=== PATIENT | female | born 1955 | race Caucasian/White ===

== ENCOUNTER 2023-12-16 03:10 | Emergency (ER) | payer MEDICARE, OTHER, SELFPAY ==
[2023-12-16] VITALS (11 sets, daily range): BP systolic 141–174; BP diastolic 64–78; PULSE 86–106; RESP 16–22; TEMP 36.8; O2SAT 93–97; BMI 18.3
--- NOTE | 2023-12-16 03:14 | DI.CT.S_ITS ---
PROCEDURE: CT ANGIO HEAD AND NECK INDICATIONS: Aphasia TECHNIQUE: After the administration of intravenous contrast, 1 mm thick sections acquired from the aortic arch through the [place] of [place]. 3-dimensional mhvajhv-whwbeyesx-rcprptccve (MIP) and/or volume rendering reformats were acquired of the central intracranial vasculature and neck separately. For radiation dose reduction, the following was used: automated exposure control, adjustment of mA and/or kV according to patient size. COMPARISON: None. FINDINGS: Image quality: Diagnostic. BRAIN: CSF spaces: Ventricles are normal in size and shape. Basal cisterns are patent. No extra-axial fluid collections. Brain: No significant abnormality of the brain can be seen. No area of abnormal intracranial enhancement is seen. Skull and face: Calvarium and facial bones appear intact, without suspicious lesions. Orbits appear normal. Sinuses: Polyp is seen in left maxillary sinus. Rest of the paranasal sinuses and mastoids are clear. HEAD CT ANGIOGRAPHY: Anterior circulation: Intracranial internal carotid arteries are normal in size and flow. The flow within the paired anterior cerebral arteries is normal and symmetric. The flow within the middle cerebral arteries is normal and symmetric. The anterior communicating artery is seen. No aneurysms are seen. Posterior circulation: Visualized portions of the vertebral arteries demonstrate normal caliber, and join to form a normal appearing basilar artery. Flow within the posterior cerebral arteries is normal and symmetric. No aneurysms are seen. NECK CT ANGIOGRAPHY: Carotid system: The great vessels demonstrate a conventional anatomy as they arise from the aortic arch. The origins of the common carotid arteries appear patent. Moderate amount of atherosclerotic calcifications are noted involving bilateral distal common carotid arteries and carotid bifurcations with 60-70% stenosis involving origin of right internal carotid artery and less than 50% stenosis involving origin of left internal carotid artery. More distal portion of the internal carotid arteries demonstrate normal calibers and courses. Posterior circulation: The origins of the vertebral arteries both appear widely patent. The more superior extracranial portions of both vertebral arteries also demonstrate normal courses and calibers. They join to form a normal appearing basilar artery. Soft tissues: Visualized neck soft tissues demonstrate no suspicious abnormalities. Bones: No suspicious bony lesions. Visualized cervical spine appears normally aligned. IMPRESSION: 1. No area of abnormal intracranial enhancement. No acute intracranial bleed or midline shift. 2. No hemodynamically significant stenosis or aneurysm is seen in the intracranial circulation. 3. Moderate atherosclerotic disease involving bilateral carotid bifurcations with up to 70% stenosis involving origin of right internal carotid artery and less than 50% stenosis involving origin of left internal carotid arteries. No significant discrepancies from preliminary reading. Any quantitative measurements of stenosis were performed using NASCET criteria. Dictated by: Aleksandr Roldan M.D. on 12/16/2023 at 8:20 Approved by: Aleksandr Roldan M.D. on 12/16/2023 at 8:23
--- NOTE | 2023-12-16 03:14 | DI.CT.S_ITS ---
PROCEDURE: CT HEAD/BRAIN WO CON INDICATIONS: Aphasia TECHNIQUE: Noncontrast 4.5 mm thick angled axial sections acquired from the foramen magnum to the vertex, with coronal and sagittal reformats. For radiation dose reduction, the following was used: automated exposure control, adjustment of mA and/or kV according to patient size. COMPARISON: None. FINDINGS: Image quality: Diagnostic. CSF spaces: Basal cisterns are patent. No extra-axial fluid collections. The ventricles are symmetric in size and shape. Brain: Hypodensity involving right frontal parietal region with poor lindsey-white differentiation concerning for infarction of indeterminate age. No intracranial bleeds or masses. There is cerebral volume loss for age, with resultant ventricular and sulcal prominence. There are periventricular and deep white matter chronic small vessel ischemic changes. There is intracranial internal carotid artery atherosclerosis. Skull and face: Calvarium and visualized facial bones appear intact, without suspicious lesions. Sinuses: Visualized sinuses and mastoids are clear. IMPRESSION: Finding is concerning for age indeterminate infarction involving right frontal parietal region. MRI of brain can be done for further evaluation if indicated. No evidence of acute intracranial bleed, midline shift or significant mass effect. Age related volume loss and moderate white matter chronic small vessel ischemic changes. No discrepancies from preliminary reading. Dictated by: Aleksandr Roldan M.D. on 12/16/2023 at 8:17 Approved by: Aleksandr Roldan M.D. on 12/16/2023 at 8:19
[2023-12-16 03:32] LABS: Add Manual Diff / Slide Review NO; Basophils Absolute Auto 100 /uL (0-100); Basophils Percent Auto 1.2 % (0-2); Eosinophils Absolute Auto 300 /uL (0-450); Eosinophils Percent Auto 5.8 % (2-4); Hematocrit 35.8 % (36-46); Hemoglobin 12.4 g/dL (12.0-16.0); Lymphocytes Absolute Auto 1200 /uL (1100-4500); Lymphocytes Percent Auto 20.6 % (25-40); Mean Corpuscular HGB Conc 34.7 % (30-36); Mean Corpuscular Volume 92.2 fL (80-100); Monocytes Absolute Auto 1400 /uL (0-900); Monocytes Percent Auto 24.2 % (3-14); Neutrophils Absolute Auto 2700 /uL (1500-7000); Neutrophils Percent Auto 48.2 % (50-75); Platelet Count 257 X10^3/uL (150-400); Red Blood Cell Count 3.89 X10^6/uL (4.0-5.2); Red Cell Distribution Width 13.3 % (11.6-14.8); White Blood Cell Count 5.6 X10^3/uL (4.5-11.0)
--- NOTE | 2023-12-16 04:09 | ED_ITS ---
HPI - Neuro Symptoms/Deficit General Chief Complaint: Neuro Symptoms/Deficit Stated Complaint: Slurred Speech Time Seen by Provider: 12/16/23 03:13 Source: patient and EMS Mode of arrival: EMS History of Present Illness HPI Narrative: Patient is a 68-year-old female. Not on anticoagulation. Last known normal 2100 hours when she went to bed last evening. Brought in by EMS for evaluation of slurred speech. She was here with her . Patient has had a recent diagnosis of C diff. She was currently on medications for this. Patient's states that he has been sleeping in another room because the patient gets up multiple times during the evening to go to the bathroom. This evening he heard her get up and seemed to be making more noise than normal so he went to check on her. She was unable to speak. This is what prompted him to contact 911. Here in the ER the patient is having a difficult time expressing what she was trying to say. She does indicate that she knows what she wants to say but is unable to do so. She denies headache, vision changes, chest pain, shortness of breath, palpitations, she was having some abdominal discomfort this is baseline for her because of the C diff. she denies any upper or lower extremity weakness. On Anticoagulants: No Related Data Home Medications Medication Instructions Recorded Confirmed [allertec] ##0 06/17/17 lisinopril 10 mg tablet 10 mg PO QDAY ##0 06/17/17 aspirin 81 mg tablet,delayed 81 mg PO QDAY ##0 07/23/17 release cholecalciferol (vitamin D3) 50 2,000 iu PO QDAY ##0 07/23/17 mcg (2,000 unit) capsule (Vitamin D3) omega 8-wzs-afm-fish oil 1,000 mg 1,200 mg PO ##0 07/23/17 (120 mg-180 mg) capsule (Fish Oil) vancomycin 125 mg capsule 125 mg PO 4XD 12/16/23 12/16/23 Previous Rx's Medication Instructions Recorded acyclovir 800 mg tablet 800 mg PO 5XD #50 tabs 07/23/17 Allergies Allergy/AdvReac Type Severity Reaction Status Date / Time cefuroxime [From CEFTIN] Allergy Unknown sick to Unverified 01/28/18 12:46 stomach codeine [CODEINE] Allergy Unknown sick to Unverified 01/28/18 12:46 [facility] Review of Systems Review of Systems ROS Unobtainable: All systems reviewed & are unremarkable except as noted in HPI and below Gastrointestinal Gastrointestinal: Reports system reviewed and no additional complaints, except as documented Neurologic Neurologic: Reports system reviewed and no additional complaints, except as documented Hematologic/Lymphatic On Anticoagulants: No Patient History Social History Smoking Status: Unknown if ever smoked Smoking Status: Unknown if ever smoked Substance Use Type: does not use Exam Initial Vital Signs Initial Vital Signs: Vital Signs Temperature 98.3 F 12/16/23 03:10 Pulse Rate 89 12/16/23 03:10 Respiratory Rate 18 12/16/23 03:10 Blood Pressure 162/72 H 12/16/23 03:10 Pulse Oximetry 95 12/16/23 03:10 Oxygen Delivery Method Room Air 12/16/23 03:10 Const General: cooperative, healthy appearing, comfortable and No ill appearing HENMT Head: normal to inspection and normocephalic Resp Effort & Inspection: normal respiratory effort Auscultation: clear to auscultation bilaterally Cardio Rate: regular rate Rhythm: regular rhythm Skin General: no rashes or lesions noted Neuro General: patient alert, patient awake and moves all extremities Speech: abnormal speech Motor: muscle tone normal throughout Sensory Exam: no sensory deficits noted Extrem General: normal to inspection and capillary refill normal Scores NIH Stroke Scale Level of Conciousness: Alert, keenly responsive Ask month/age: Answers both questions correctly. Open/close eyes, close hand: Performs both tasks correctly Best gaze horizontal: Normal Visual gale: No visual loss Facial palsy: Normal symetrical movement Left arm drift: No drift for full 10 sec Right arm drift: No drift for full 10 sec Left leg drift: No drift for full 5 sec Right leg drift: No drift for full 5 sec Limb ataxia: Absent Sensory on face/arms/legs: Normal, no sensory loss Best language: Severe aphasia, not much is understood, fragmented Dysarthria: Severe, unintelligible Extinction or inattention: No abnormality Total NIH Stroke scale score: 4 Course Orders Ordered: ED Orders 12/16/23 03:00 Complete Blood Count AUTO DIFF Stat Comprehensive Metabolic Panel Stat Ethanol (ETOH) Stat Lipase Stat PTT Partial Thromboplastin Neal Stat Prothrombin Time INR Stat 12/16/23 03:14 CT angio head and neck Stat CT head/brain wo con Stat 12/16/23 03:15 EKG-12 Lead Stat 12/16/23 05:45 COVID19 -Nasal RAPID Stat Discontinued Medications Aspirin (Aspirin Ec 325 Mg Tablet) 325 mg PO NOW ONE Stop: 12/16/23 04:57 Last Admin: 12/16/23 05:20 Dose: 325 mg Documented By: BREEZY Atorvastatin Calcium (Atorvastatin 20 Mg Tablet) 80 mg PO NOW ONE Stop: 12/16/23 04:57 Last Admin: 12/16/23 05:21 Dose: 80 mg Documented By: BREEZY Clopidogrel Bisulfate (Clopidogrel 75 Mg Tablet) 300 mg PO NOW ONE Stop: 12/16/23 04:57 Last Admin: 12/16/23 05:21 Dose: 300 mg Documented By: BREEZY Vancomycin HCl (Vancomycin 125 Mg Capsule) 125 mg PO NOW ONE Stop: 12/16/23 05:54 Last Admin: 12/16/23 06:05 Dose: 125 mg Documented By: BREEZY Vital Signs Vital signs: Vital Signs - 8 hr 12/16/23 03:10 12/16/23 05:58 12/16/23 05:59 Temperature 98.3 F Pulse Rate 89 87 89 Respiratory Rate 18 16 Blood Pressure 162/72 H 141/64 H Pulse Oximetry 95 93 97 Oxygen Delivery Method Room Air Room Air Room Air 12/16/23 05:59 12/16/23 05:59 12/16/23 06:00 Temperature Pulse Rate 88 Respiratory Rate Blood Pressure 141/64 H 148/67 H Pulse Oximetry 97 Oxygen Delivery Method Room Air 12/16/23 06:00 12/16/23 06:34 Temperature Pulse Rate 86 106 H Respiratory Rate Blood Pressure Pulse Oximetry 97 94 Oxygen Delivery Method Room Air Room Air MDM - Neuro Symptoms/Deficit Lab Data Attestation: I reviewed the patient's lab results. 12/16/23 03:00 12/16/23 03:00 Labs: Lab Results 12/16/23 12/16/23 Range/Units 03:00 05:45 WBC 5.6 (4.5-11.0) X10^3/uL RBC 3.89 L (4.0-5.2) X10^6/uL Hgb 12.4 (12.0-16.0) g/dL Hct 35.8 L (36-46) % MCV 92.2 (80-100) fL MCH 32.0 (26-34) PG MCHC 34.7 (30-36) % RDW 13.3 (11.6-14.8) % Plt Count 257 (150-400) X10^3/uL Neut % (Auto) 48.2 L (50-75) % Lymph % (Auto) 20.6 L (25-40) % [place] % (Auto) 24.2 H (3-14) % Eos % (Auto) 5.8 H (2-4) % Baso % (Auto) 1.2 (0-2) % Neut # (Auto) 2700 (8325-3489) /uL Lymph # (Auto) 1200 (5803-8285) /uL [place] # (Auto) 1400 H (0-900) /uL Eos # (Auto) 300 (0-450) /uL Baso # (Auto) 100 (0-100) /uL PT 12.6 H (9.4-12.5) SECONDS INR 1.1 (0.9-1.3) APTT 36 (25.1-36.5) SECONDS Sodium 133 L (137-145) mmol/L Potassium 3.4 (3.4-5.1) mmol/L Chloride 106 (98-107) mmol/L Carbon Dioxide 19 L (22-32) mmol/L BUN 12 (7-17) mg/dL Creatinine 0.64 (0.52-1.04) mg/dL Estimated GFR > 60 (>60) mL/min BUN/Creatinine Ratio 18.8 (6-22) Glucose 83 (80-110) mg/dL Calcium 8.7 (8.4-10.2) mg/dL Total Bilirubin 0.7 (0.2-1.3) mg/dL AST 37 H (14-36) IU/L ALT 45 H (<35) IU/L Alkaline Phosphatase 192 H (38-126) U/L Total Protein 5.7 L (6.3-8.2) g/dL Albumin 2.9 L (3.5-5.0) g/dL Globulin 2.8 (1.7-4.1) g/dL Albumin/Globulin Ratio 1.0 (1.0-2.8) Lipase 66 (23-300) U/L Ethyl Alcohol < 10 ( - 10) mg/dL SARS-CoV-2 (PCR) Negative (Negative) Imaging Data CT scan - head: Radiologist's Impression: Blurring of the lindsey white cortical interface within the right frontoparietal region which could represent an acute or subacute infarct. Refer to CTA of the head performed same day. CTA - brain/neck: Radiologist's Impression: No vessel occlusion Atherosclerotic changes of the carotid bifurcations resulting in 60-70% stenosis on the right and less than 40% stenosis on the left. Patent vesicles intracranial ECG Data Interpretation: Sinus rhythm Ventricular rate 83 Normal axis Normal QRS Nonspecific ST T wave changes MDM Narrative Medical decision making narrative: Patient's symptoms are all related to her ability to speak. Otherwise her neurologic exam is relatively unremarkable. Has a Na score of 4. Outside of the window for tPA given her last known normal at 2100 hours last evening. I did discuss the case with stroke Neurology after the CT scan results showed concern for right-sided frontal CVA. Patient is left handed. While awaiting for results of the CTA received a call back from stroke Neurology stating that the patient does have significant right-sided carotid artery stenosis. They recommended that the patient be given aspirin Plavix and atorvastatin. They also recommended a transfer for further evaluation and discussion about potential endarterectomy. I had a discussion with the patient and regarding this. They stated that several years ago they were seen by a vascular surgeon [facility] about a known carotid artery stenosis. They were told that she was not at a specific level that would necessitate surgery so the decision was made to hold. We discussed her symptoms today and the recommendation for transfer. Patient is agreeable to this. Patient is stable for transport. Discharge Plan Departure Patient Disposition: [facility] Clinical Impression: Cerebrovascular accident Prescriptions: No Action lisinopril 10 MG tablet 10 mg PO QDAY Qty: 0 [allertec] Qty: 0 aspirin 81 MG tablet,delayed release (DR/EC) 81 mg PO QDAY Qty: 0 cholecalciferol (vitamin D3) [Vitamin D3] 2,000 UNIT capsule 2,000 iu PO QDAY Qty: 0 omega 6-vqr-iob-fish oil [Fish Oil] 1,000 MG capsule 1,200 mg PO Qty: 0 acyclovir 800 MG tablet 800 mg PO 5XD Qty: 50 0RF vancomycin 125 mg capsule 125 mg PO 4XD
[2023-12-16 04:30] LABS: INR 1.1 (0.9-1.3); Prothrombin Time 12.6 SECONDS (9.4-12.5)
[2023-12-16 04:32] LABS: PTT Partial Thromboplastin Tim 36 SECONDS (25.1-36.5)
[2023-12-16 04:34] LABS: Alanine Aminotransferase 45 IU/L (<35); Albumin 2.9 g/dL (3.5-5.0); Alkaline Phosphatase 192 U/L (38-126); Aspartate Aminotransferase 37 IU/L (14-36); BUN Creatinine Ratio 18.8 (6-22); Bilirubin Total 0.7 mg/dL (0.2-1.3); Blood Urea Nitrogen 12 mg/dL (7-17); Calcium 8.7 mg/dL (8.4-10.2); Carbon Dioxide 19 mmol/L (22-32); Chloride 106 mmol/L (98-107); Estimated Glomerular Filt Rate > 60 mL/min (>60); Ethanol (ETOH) < 10 mg/dL; Globulin 2.8 g/dL (1.7-4.1); Glucose 83 mg/dL (80-110); HEMOLYSIS < 15 (0-50); Lipase 66 U/L (23-300); Potassium 3.4 mmol/L (3.4-5.1); Sodium 133 mmol/L (137-145); Total Protein 5.7 g/dL (6.3-8.2)
[2023-12-16] MEDS: ASPIRIN EC 325 MG TABLET PO (05:20)
[2023-12-16] MEDS: ATORVASTATIN 20 MG TABLET 80 MG PO (05:21)
[2023-12-16] MEDS: CLOPIDOGREL 75 MG TABLET 300 MG PO (05:21)
[2023-12-16] MEDS: VANCOMYCIN 125 MG CAPSULE PO (06:05)
[2023-12-16 06:16] LABS: COVID19 -Nasal RAPID Negative (Negative)
== END 2023-12-16 09:05 | disposition short-term general hospital (02) ==
PROVIDERS: Emergency Provider Emergency Medicine
DX: I63.9 Cerebral infarction, unspecified (principal); R29.704 NIHSS score 4; Z79.899 Other long term (current) drug therapy
CPT/HCPCS: 36415; 70450; 70496; 70498; 80053; 80320; 83690; 85025; 85610; 85730; 87635; 93005; 99284; Q9967

== ENCOUNTER 2024-01-09 18:46 | Emergency (ER) | payer MEDICARE, OTHER, SELFPAY ==
[2024-01-09 19:17] VITALS: BP 144/66; PULSE 96; RESP 18; TEMP 36.8; O2SAT 97; BMI 17.8
== END 2024-01-09 20:05 | disposition left against medical advice (07) ==
PROVIDERS: Emergency Provider Emergency Medicine
DX: E86.0 Dehydration (principal); R19.7 Diarrhea, unspecified
CPT/HCPCS: 93005; 99282

== ENCOUNTER 2024-01-14 22:52 | Emergency (ER) | payer MEDICARE, OTHER, SELFPAY ==
[2024-01-14 23:02] VITALS: PULSE 71; O2SAT 97
[2024-01-14 23:03] VITALS: BP 213/89; PULSE 72; O2SAT 98
[2024-01-14 23:13] VITALS: BP 213/89; PULSE 78; RESP 18; TEMP 36.7; O2SAT 97; BMI 38.9
--- NOTE | 2024-01-14 23:26 | ED_ITS ---
HPI - Nausea/Vomiting/Diarrhea General Chief complaint: Nausea/Vomiting/Diarrhea Stated complaint: diarrhea, can't keep anything down Time Seen by Provider: 01/14/24 23:16 Source: patient and family Mode of arrival: Ambulatory History of Present Illness HPI Narrative: Patient is a 68-year-old female. Recent CVA. Requiring transfer to [facility]. Spent an extended period of time down in [facility]. At a right-sided carotid endarterectomy. During the time when she was down there she was diagnosed with C diff. She has been on vancomycin. Complete the course of vancomycin within the past week or so. She is here because of diarrhea. She thinks that her symptoms actually were improving for a couple days and she did have an episode of stool earlier today where she thought that it was relatively formed but then developed diarrhea has a day went on. Some generalized abdominal tenderness. No fevers. No vomiting. States her stool does not have the smell in or the consistency of when she was diagnosed with C diff. Related Data Home Medications Medication Instructions Recorded Confirmed [allertec] ##0 06/17/17 lisinopril 10 mg tablet 10 mg PO QDAY ##0 06/17/17 aspirin 81 mg tablet,delayed 81 mg PO QDAY ##0 07/23/17 release cholecalciferol (vitamin D3) 50 2,000 iu PO QDAY ##0 07/23/17 mcg (2,000 unit) capsule (Vitamin D3) omega 9-del-znz-fish oil 1,000 mg 1,200 mg PO ##0 07/23/17 (120 mg-180 mg) capsule (Fish Oil) vancomycin 125 mg capsule 125 mg PO 4XD 12/16/23 12/16/23 Previous Rx's Medication Instructions Recorded acyclovir 800 mg tablet 800 mg PO 5XD #50 tabs 07/23/17 Allergies Allergy/AdvReac Type Severity Reaction Status Date / Time cefuroxime [From CEFTIN] Allergy Unknown sick to Unverified 01/28/18 12:46 stomach codeine [CODEINE] Allergy Unknown sick to Unverified 01/28/18 12:46 [facility] Review of Systems Review of Systems Narrative: See HPI Patient History Social History Smoking Status: Former smoker Smoking Status: Former smoker tobacco type: cigarettes alcohol intake frequency: a few times a week Alcohol type: wine Substance Use Type: does not use Exam Initial Vital Signs Initial Vital Signs: Vital Signs Pulse Rate 71 01/14/24 23:02 Pulse Oximetry 97 01/14/24 23:02 Const General: cooperative, comfortable and No ill appearing Resp Effort & Inspection: normal respiratory effort Auscultation: clear to auscultation bilaterally Cardio Rate: regular rate Rhythm: regular rhythm GI Inspection: normal to inspection and non-distended Palpation: soft, No firm, No guarding and tender Neuro General: patient alert and patient awake Course Orders Ordered: ED Orders 01/14/24 23:20 Complete Blood Count AUTO DIFF Stat Comprehensive Metabolic Panel Stat Lipase Stat 01/15/24 00:43 GI Panel (Film Array) Stat Discontinued Medications Sodium Chloride (Normal Saline 0.9%) 1,000 mls @ 1,000 mls/hr IV BOLUS ONE Stop: 01/15/24 00:15 Last Infusion: 01/15/24 01:02 Dose: Infused Documented By: Admin: 01/14/24 23:40 Dose: 1,000 mls/hr Documented By: BOB Vital Signs Vital signs: Vital Signs - 8 hr 01/14/24 23:02 01/14/24 23:03 01/14/24 23:03 Temperature Pulse Rate 71 72 Respiratory Rate Blood Pressure 213/89 H Pulse Oximetry 97 98 Oxygen Delivery Method 01/14/24 23:13 01/14/24 23:37 01/14/24 23:43 Temperature 98.1 F Pulse Rate 78 69 72 Respiratory Rate 18 Blood Pressure 213/89 H Pulse Oximetry 97 99 98 Oxygen Delivery Method Room Air Room Air 01/14/24 23:43 01/15/24 00:00 01/15/24 00:00 Temperature Pulse Rate 71 Respiratory Rate Blood Pressure 194/85 H 184/79 H Pulse Oximetry 99 Oxygen Delivery Method Room Air Room Air 01/15/24 00:30 01/15/24 00:30 01/15/24 00:52 Temperature Pulse Rate 76 Respiratory Rate Blood Pressure 180/79 H 174/80 H Pulse Oximetry 97 Oxygen Delivery Method 01/15/24 00:52 01/15/24 01:00 01/15/24 01:00 Temperature Pulse Rate 89 82 Respiratory Rate Blood Pressure 197/87 H Pulse Oximetry 96 99 Oxygen Delivery Method Room Air 01/15/24 01:31 01/15/24 01:33 01/15/24 01:33 Temperature Pulse Rate 92 H 81 Respiratory Rate Blood Pressure 197/87 H Pulse Oximetry 85 L 98 Oxygen Delivery Method 01/15/24 02:00 01/15/24 02:00 Temperature Pulse Rate 83 Respiratory Rate Blood Pressure 182/83 H Pulse Oximetry 97 Oxygen Delivery Method Room Air MDM - Nausea/Vomiting/Diarrhea Lab Data 01/14/24 23:20 01/14/24 23:20 Labs: Lab Results 01/14/24 01/15/24 Range/Units 23:20 00:43 WBC 11.2 H (4.5-11.0) X10^3/uL RBC 3.55 L (4.0-5.2) X10^6/uL Hgb 11.2 L (12.0-16.0) g/dL Hct 33.5 L (36-46) % MCV 94.2 (80-100) fL MCH 31.5 (26-34) PG MCHC 33.4 (30-36) % RDW 14.0 (11.6-14.8) % Plt Count 353 (150-400) X10^3/uL Neut % (Auto) 65.2 (50-75) % Lymph % (Auto) 19.3 L (25-40) % [place] % (Auto) 9.5 (3-14) % Eos % (Auto) 5.0 H (2-4) % Baso % (Auto) 1.0 (0-2) % Neut # (Auto) 7300 H (9198-1351) /uL Lymph # (Auto) 2200 (1905-8663) /uL [place] # (Auto) 1100 H (0-900) /uL Eos # (Auto) 600 H (0-450) /uL Baso # (Auto) 100 (0-100) /uL Sodium 137 (137-145) mmol/L Potassium 4.1 (3.4-5.1) mmol/L Chloride 108 H (98-107) mmol/L Carbon Dioxide 26 (22-32) mmol/L BUN 15 (7-17) mg/dL Creatinine 0.60 (0.52-1.04) mg/dL Estimated GFR > 60 (>60) mL/min BUN/Creatinine Ratio 25.0 H (6-22) Glucose 94 (80-110) mg/dL Calcium 9.5 (8.4-10.2) mg/dL Total Bilirubin 0.5 (0.2-1.3) mg/dL AST 34 (14-36) IU/L ALT 20 (<35) IU/L Alkaline Phosphatase 65 (38-126) U/L Total Protein 6.3 (6.3-8.2) g/dL Albumin 3.7 (3.5-5.0) g/dL Globulin 2.6 (1.7-4.1) g/dL Albumin/Globulin Ratio 1.4 (1.0-2.8) Lipase 412 H (23-300) U/L Stl C. cayetanensis PCR Not detected (Not Detect) Stool Rotavirus (PCR) Not detected (Not Detect) Stool Adenovirus (PCR) Not detected (Not Detect) Stool Astrovirus (PCR) Not detected (Not Detect) Stool Cryptosporidium PCR Not detected (Not Detect) Stl E.coli Shiga Tox PCR Not detected (Not Detect) St Sh/Enteroin Ecoli PCR Not detected (Not Detect) Stl Enterotoxigenic E PCR Not detected (Not Detect) Stool EPEC (PCR) Not detected (Not Detect) Stl E. histolytica PCR Not detected (Not Detect) Stool Giardia Lamblia PCR Not detected (Not Detect) Stool Sapovirus (PCR) Not detected (Not Detect) Stl P. shigelloides PCR Not detected (Not Detect) St Y.enterocolitica PCR Not detected (Not Detect) Stool Vibrio (PCR) Not detected (Not Detect) Stl Vibrio cholerae PCR Not detected (Not Detect) Stl Enteroaggr Ecoli PCR Not detected (Not Detect) Stl Norovirus GI/GII PCR Not detected (Not Detect) Campylobacter (PCR) Not detected (Not Detect) C. difficile Tox (PCR) Detected H (Not Detect) Salmonella (PCR) Not detected (Not Detect) MDM Narrative Medical decision making narrative: Patient's vital signs are unremarkable. She stated that she did feel better after fluids. Has a minimal leukocytosis. Her sodium is unremarkable. She is positive for C diff in her stool however I am not convinced that her diarrhea today is related to this. It is possible that she still has C diff in her stool given her most recent diagnosis. I discuss this with her and her . We discussed the possibility that her diarrhea today is just because she has changed her diet after arriving home from the hospital. We also discussed that potentially this is C diff. she completed a course of vancomycin. If she is still having issues with C diff it would be reasonable to switch to a different antibiotic. After this extended discussion with her the plan will be to not treat her for C diff now in his assume that this is a carrier state. She will try Imodium at home. When she was coming home from the hospital with a GI doctor stated that she could take this and she was actually given a prescription for it. She will increase her fluid intake. If things get worse then she will return to the ER. If things are not better I told her that she could call the emergency department to see if the provider who is on would write her a prescription for either fosfomycin her vancomycin but I did tell her that this would not be guaranteed and she potentially would need to come back to the emergency department. She was scheduled to see her primary doctor but not for a month from now. She does not have a GI doctor she sees on a regular basis. She was given return precautions. She expressed understanding and agreement. Discharge Plan Departure Patient Disposition: Home Clinical Impression: Diarrhea Instructions: Diarrhea Activity Restrictions/Additional Instructions: You can do a dose of the loperamide/Imodium to try to help slow down the loose stools. Continue to follow all of the postoperative instructions given to you by the vascular surgeons. Keep all of your scheduled medical appointments. Be sure that you were increasing your fluid intake. Return to the emergency department for new or worsening symptoms. Prescriptions: No Action lisinopril 10 MG tablet 10 mg PO QDAY Qty: 0 [allertec] Qty: 0 aspirin 81 MG tablet,delayed release (DR/EC) 81 mg PO QDAY Qty: 0 cholecalciferol (vitamin D3) [Vitamin D3] 2,000 UNIT capsule 2,000 iu PO QDAY Qty: 0 omega 6-zhj-kuy-fish oil [Fish Oil] 1,000 MG capsule 1,200 mg PO Qty: 0 acyclovir 800 MG tablet 800 mg PO 5XD Qty: 50 0RF vancomycin 125 mg capsule 125 mg PO 4XD Referrals: Elijah Yuan MD [Primary Care Provider] - Stand Alone Forms: Patient Portal/API
[2024-01-14 23:31] LABS: Add Manual Diff / Slide Review NO; Basophils Absolute Auto 100 /uL (0-100); Eosinophils Absolute Auto 600 /uL (0-450); Hematocrit 33.5 % (36-46); Hemoglobin 11.2 g/dL (12.0-16.0); Lymphocytes Absolute Auto 2200 /uL (1100-4500); Lymphocytes Percent Auto 19.3 % (25-40); Mean Corpuscular HGB Conc 33.4 % (30-36); Mean Corpuscular Hemoglobin 31.5 PG (26-34); Mean Corpuscular Volume 94.2 fL (80-100); Monocytes Absolute Auto 1100 /uL (0-900); Monocytes Percent Auto 9.5 % (3-14); Neutrophils Absolute Auto 7300 /uL (1500-7000); Neutrophils Percent Auto 65.2 % (50-75); Platelet Count 353 X10^3/uL (150-400); Red Blood Cell Count 3.55 X10^6/uL (4.0-5.2); White Blood Cell Count 11.2 X10^3/uL (4.5-11.0)
[2024-01-14 23:37] VITALS: PULSE 69; O2SAT 99
[2024-01-14] MEDS: SODIUM CHLORIDE 0.9% 1,000 ML 1000 ML IV (23:40)
[2024-01-14 23:43] VITALS: BP 194/85; PULSE 72; O2SAT 98
[2024-01-14 23:45] LABS: Alanine Aminotransferase 20 IU/L (<35); Albumin 3.7 g/dL (3.5-5.0); Albumin Globulin Ratio 1.4 (1.0-2.8); Alkaline Phosphatase 65 U/L (38-126); Aspartate Aminotransferase 34 IU/L (14-36); Bilirubin Total 0.5 mg/dL (0.2-1.3); Blood Urea Nitrogen 15 mg/dL (7-17); Calcium 9.5 mg/dL (8.4-10.2); Carbon Dioxide 26 mmol/L (22-32); Chloride 108 mmol/L (98-107); Estimated Glomerular Filt Rate > 60 mL/min (>60); Globulin 2.6 g/dL (1.7-4.1); Glucose 94 mg/dL (80-110); HEMOLYSIS 26 (0-50); Lipase 412 U/L (23-300); Potassium 4.1 mmol/L (3.4-5.1); Sodium 137 mmol/L (137-145); Total Protein 6.3 g/dL (6.3-8.2)
[2024-01-15] VITALS (8 sets, daily range): BP systolic 174–197; BP diastolic 79–87; PULSE 71–92; O2SAT 85–99
[2024-01-15 02:07] LABS: Adenovirus F 40/41 Not Detected (Not Detect); Astrovirus Not Detected (Not Detect); Campylobacter Not Detected (Not Detect); Clostridium difficile toxin AB Detected (Not Detect); Cryptosporidium Not Detected (Not Detect); Cyclospora cayetanensis Not Detected (Not Detect); Entamoeba histolytica Not Detected (Not Detect); Enteroaggregative E.coli Not Detected (Not Detect); Enteropathogenic E.coli Not Detected (Not Detect); Enterotoxigenic E.coli It/st Not Detected (Not Detect); Giardia lamblia Not Detected (Not Detect); Norovirus GI/GII Not Detected (Not Detect); Plesiomonsa shigelloides Not Detected (Not Detect); Rotavirus A Not Detected (Not Detect); Salmonella Not Detected (Not Detect); Sapovirus Not Detected (Not Detect); Shiga-like toxin-prod E.coli Not Detected (Not Detect); Shigella/Enteroinvasive E.coli Not Detected (Not Detect); Vibrio Not Detected (Not Detect); Vibrio cholerae Not Detected (Not Detect); Yersinia enterocolitica Not Detected (Not Detect)
== END 2024-01-15 03:07 | disposition home or self-care (01) ==
PROVIDERS: Emergency Provider Emergency Medicine; PCP Family Medicine Sports Medicine
DX: A04.72 Enterocolitis due to Clostridium difficile, not specified as recurrent (principal); R19.7 Diarrhea, unspecified; R10.84 Generalized abdominal pain
CPT/HCPCS: 36415; 80053; 83690; 85025; 87507; 96360; 99284

== ENCOUNTER 2024-01-23 08:45 | Outpatient (RCR) | payer MEDICARE, OTHER, SELFPAY ==
--- NOTE | 2024-01-23 09:30 | OT.OP.TRT ---
Visit Care Team Role Provider Type Elijah Yuan MD Family Provider Non-Staff Primary Care Provider Specialty: Family Practice Address: [address], [place], [address] Email: Tequila Cormier Attending Provider Non-Staff Referring Provider Specialty: Medical Address: [address] [facility] [address], [place], [address] Email: Corrine is a 68 y.o. left hand dominant female referred to OT secondary to multi territory ischemic strokes. QuickDASH UE Outcome Measure Score = 0.00. She denies UE pain/discomfort; this is also captured by Pain Assessment Grids. She reports that she has been cleared by her MD to return to driving; she states that her handwriting is shaky, however, MD indicates that it is not correlated w/ her most recent stroke. She is retired. She has returned to doing responder; she is managing her own medications, preparing meals, managing laundry, walking daily, including walking couple's dog, w/ goal of returning to walking up to 3 miles. She is an avid reader and recently did the [employer] taxes online without 's support. She denied any difficulties w/ navigating the computer. She reports some difficulties w/ spelling, word finding, and formulating thoughts, however, she has worked hard to slow down, and is being followed by MEDICAL OFFICER. Corrine denied any difficulties with self care tasks, including managing buttons, jewelry, zippers, tying. Recommend cont w/ outpatient MEDICAL OFFICER and d/c from outpatient OT.
== END 2024-01-29 08:05 | disposition home or self-care (01) ==
LOC: OT 08:45
PROVIDERS: Family Provider Family Medicine Sports Medicine; PCP Family Medicine Sports Medicine; Referring Provider Nurse Practitioner Adult Health; Visit Provider Nurse Practitioner Adult Health
DX: I63.89 Other cerebral infarction (principal)

== ENCOUNTER 2024-01-29 08:15 | Outpatient (RCR) | payer MEDICARE, OTHER, SELFPAY ==
--- NOTE | 2024-01-21 10:27 | ST.OPIE ---
Visit Care Team Role Provider Type Elijah Yuan MD Family Provider Non-Staff Primary Care Provider Specialty: Family Practice Address: [address] , [place], [address] Email: Tequila Cormier Attending Provider Non-Staff Referring Provider Specialty: Medical Address: [address] [address], [place], [address] Email: Speech-Language Pathology Initial Evaluation PHARMACY SALESPERSON Adult Cognitive Linguistic Eval Start: 01/20/24 17:28 Freq: Status: Active Protocol: Document 01/20/24 17:28 VICTORIANO (Rec: 01/20/24 17:50 MA [id number]) Adult Cognitive Linguistic Evaluation Session Time Visit Start Time 09:00 Visit Stop Time 09:45 Total Visit Minutes 45 Visit Information Visit Number Initial Evaluation Plan of Care Dates 01/20/24-04/20/24 Insurance Information Medicare Referral Referring Provider Dr. Nelly Cormier Reason for Referral CVA Setting Assessment Location Acute Care Visit Type Note Type Initial evaluation Next Note Type Next Note Type Treatment Note Patient Information Identification Type Name Patient History Pt is a 68 year old female seen this date for speech/ language evaluation s/p CVA that Pt reports occurred about 20 days ago. She reports she was brought to [facility] and then taken to [facility]. She reports she has speech therapy 2x while in the hospital. She is retired and lives with her . She states her only lingering symptoms are some word finding difficulties and not speaking as smoothly as she would like. She also reports some miild right sided facial droop . PMHx significant for: HTN, HLD, cartotid artery stenosis, TIA, C diff colitis, breast CA s/p partial mastectomy. Language(s) Spoken in the Home Malaysian Occupation Status Retired Hearing Hearing Level Normal Vision Vision Status Not Impaired Previous Therapy Previous Speech-Language Therapy Yes History of Therapy She had speech therapy while in acute care. She states she worked on following directions and word finding. She says she was tauught to let thoughts form and then say them. Subjective Patient Report Pt arrived to evaluation with her who did not accompany her to the evaluation. She reports she lives with her and is retired. She states most difficulties with word finding and communicating fluently and smoothly. She denies any cognitive deficits and states she did her taxes and her friends taxes. She also reports she is dropping words when texting, which has caused her some frustration d/t her stating it takes a long time to text. She reports she would like to speak better and have hehr smile back. Assessment Oral Motor Examination Completed Yes Results Mild right sided facial droop when smiling, symmetrical at rest. All other oral motor structures appear WFL. Informal Assessment Receptive Language Normal Yes Expressive Language Normal No Pragmatic Language Normal Yes Speech Normal No Cognition Normal Yes Formal Assessment Standardized Test/Screener Type Quick Aphasia Battery (QAB) Administration Complete Results ST administered the Quick Aphasia Battery (QAB) and the [place] Aphasia Screening Test (MAST). For the QAB she scored a total score of 9.90, indicating no aphasia. For the MAST she scored a total score ofo 98/100, specifically 48/50 for expressive and 50/ 50 for receptive language. In the QAB she demonstrated mild weakness with repetition, specifically longer sentences and exhibits mild dysarthria. For the MAST she exhibited 1x difficulty with sentence completion, which may be d/t her stating she does not know that catch phrase. Informally, she added an /s/ at the end of words asked to repeat x3, with her stating she has noticed this trend and can usually catch herself and self correct. Findings/Results Language Function Mildly impaired Cognitive Function Within functional limits Findings Pt presents with mild dysarthria and expressive language impairment, characterized by word finding deficits, mild right sided facial droop and difficulties with expressing herself smoothly. Cognitive Communication Deficits Self-awareness of Cognitive- Predictive awareness (able to Communication Deficits predict problem; impact of impairments) Prognosis Prognosis Good Based on Cognitive status,Family support Plan of Care Speech-Language Treatment Yes Frequency 1x/week Duration 3 months Patient/Caregiver Education Described results of evaluation,Patient expressed understanding of evaluation, Patient expressed agreement with goals and treatment plans Short Term Goals STG 1: Pt will participate in oral motor speech tasks to improve lingual and labial strength, ROM and motility for articulation with min cues. STG 2:Pt will utilize compensatory strategies of reduced rate, over articulation, and increased loudness with min cues. STG 3: Pt will demonstrate knowledge in word finding strategies with 100% accuracy. Alf Goals LTG1 Pt will improve intelligibility of speech for functional communication.
--- NOTE | 2024-01-21 10:27 | ST.OPPOC ---
Physical, Occupational & Speech Therapy At [facility] Visit Care Team Role Provider Type Elijah Yuan MD Family Provider Non-Staff Primary Care Provider Address: [address], [place], [address] Tequila Cormier Attending Provider Non-Staff Referring Provider Address: [facility] [address] [address], [place], [address] Speech Pathology Plan of Care Plan of Care Dates 01/20/24-04/20/[address] Nelly Cormier Patient History Pt is a 68 year old female seen this date for speech/language evaluation s/p CVA that Pt reports occurred about 20 days ago. She reports she was brought to [facility] and then taken to [facility]. She reports she has speech therapy 2x while in the hospital. She is retired and lives with her . She states her only lingering symptoms are some word finding difficulties and not speaking as smoothly as she would like. She also reports some miild right sided facial droop. PMHx significant for: HTN, HLD, cartotid artery stenosis, TIA, C diff colitis, breast CA s/p partial mastectomy. Self-awareness of Cognitive- Predictive awareness (abl Communication Deficits Short Term Goals STG 1: Pt will participate in oral motor speech tasks to improve lingual and labial strength, ROM and motility for articulation with min cues. STG 2:Pt will utilize compensatory strategies of reduced rate, over articulation, and increased loudness with min cues. STG 3: Pt will demonstrate knowledge in word finding strategies with 100% accuracy. Jail Goals LTG1 Pt will improve intelligibility of speech for functional communication. Comment: Electronically Signed by: LIANNE Hutchins 01/21/24 1024 If you are in agreement with this Plan of Care, please return a signed and dated copy. I have reviewed this Plan of Care and certify that the skilled therapy services above are required to meet the patient?s needs. Physician Signature Date Printed Name and Credentials Clinical Instructor Signature Printed Name and Credentials
--- NOTE | 2024-01-29 09:41 | ST.OPTN ---
Visit Care Team Role Provider Type Elijah Yuan MD Family Provider Non-Staff Primary Care Provider Address: [address] , [place], [address] Tequila Cormier Attending Provider Non-Staff Referring Provider Address: [address] [facility] [address], [place], [address] CORPORATE SECURITY MANAGER Treatment Note CORPORATE SECURITY MANAGER Treatment Note Start: 01/29/24 09:34 Freq: Status: Active Protocol: Document 01/29/24 09:34 VICTORIANO (Rec: 01/29/24 09:41 MA [id number]) Speech Pathology Treatment Note Session Time Visit Start Time 08:15 Visit Stop Time 08:45 Total Visit Minutes 30 Visit Information Visit Number 2 Plan of Care Dates 01/20/24-04/20/24 Setting Treatment Setting Acute Care Visit Type Note Type Discharge Summary Next Note Type Next Note Type Treatment Note General Information Patient History Pt is a 68 year old female seen this date for speech/ language evaluation s/p CVA that Pt reports occurred about 20 days ago. She reports she was brought to [facility] and then taken to [facility]. She reports she has speech therapy 2x while in the hospital. She is retired and lives with her . She states her only lingering symptoms are some word finding difficulties and not speaking as smoothly as she would like. She also reports some miild right sided facial droop . PMHx significant for: HTN, HLD, cartotid artery stenosis, TIA, C diff colitis, breast CA s/p partial mastectomy. Subjective Observations/Patient Presentation Pt arrived on time to therapy. Pt reports she has had a fantastic week and has been feeling really good. Objective Short Term Goals STG 1: Pt will participate in oral motor speech tasks to improve lingual and labial strength, ROM and motility for articulation with min cues.- MET STG 2:Pt will utilize compensatory strategies of reduced rate, over articulation, and increased loudness with min cues. - MET STG 3: Pt will demonstrate knowledge in word finding strategies with 100% accuracy. - MET Salary Manager Goals LTG1 Pt will improve intelligibility of speech for functional communication.- MET Treatment Activities Word finding strategies, oral motor exercises, discharge recommendations Assessment Patient Response to Treatment Excellent Impairments Identified Expressive language,Speech Progress Towards Goals Goals Met,Appropriate for Discharge Assessment of Improvement Pt reports she had a follow up with her doctor last week and reports he is very impressed by her recovery. She states she had a PT/OT eval last week and was told therapy is not warranted d/t her progress and current state. Pt reports she has been walking 2 miles a day and socializing again with friends. She states her speech/word finding and facial droop is also improving. Pt demonstrated 1x moment of word finding difficulties during the session, however independently corrected. ST provided several educational handouts and a HEP involving oral motor exercises. ST reviewed handouts, which included word finding strategies and oral motor exercises. Pt verbalized understanding and was able to independently demonstrate exercises nd compensatory strategies. Due to patient meeting her goals and feeling she is almost back to baseline with her speech and independent with the exercises ST recommends Pt d/c from ST at this time. ST recommended Pt reach out if she has any questions in regards to HEP or speech becomes worse. Reviewed with Patient Goals,Progress Being Made,Home Exercise Program Plan Amount of Therapy Recommended No Further Therapy Frequency of Treatment No Further Therapy Provided Patient/Caregiver Instruction Home Exercise Program,Plan of Care,Questions/Concerns Therapy Recommendations Discharge from Speech Therapy
== END 2024-02-02 12:19 | disposition home or self-care (01) ==
LOC: SP 08:15
PROVIDERS: Family Provider Family Medicine Sports Medicine; PCP Family Medicine Sports Medicine; Referring Provider Nurse Practitioner Adult Health; Visit Provider Nurse Practitioner Adult Health
DX: I63.89 Other cerebral infarction (principal)
CPT/HCPCS: 92507; 92523